=== PATIENT | male | born 1995 | race Caucasian/White ===

== ENCOUNTER 2018-07-25 18:46 | Emergency (ER) | payer OTHER ==
[~2018-07-25 18:46] MED LIST: ACE3 PO; ALB0.5 INH; DEXT10SY2 PO; ERYT-80 PO; HYDR-653 PO; IBUP-1618 PO; MULT-1372 PO; PRE20 PO
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
[2018-07-25 20:22] LABS: PLATELET COUNT, AUTOMATED 199 K/uL (150-450)
[2018-07-25 21:22] VITALS: BP 122/90
== END 2018-07-25 21:20 ==
LOC: EDUNIT# 18:46 → ER 19:00
DX: R45.851 Suicidal ideations (principal)
CPT/HCPCS: 80305; 80320; 80329; 81001; 82040; 82247; 82310; 82374; 82435; 82565; 82947; 83735; 84075; 84132; 84155; 84295; 84443; 84450; 84460; 84520; 85025; 99284

== ENCOUNTER 2018-07-25 20:46 | Inpatient (IN) | payer OTHER ==
[2018-07-25] MEDS ORDERED: NICOTINE INH SYSTEM 10 MG/INH INH PRN (21:50)
[2018-07-25] MEDS ORDERED: NICOTINE CARTRIDGE 1 EA PO PRN (21:50)
[2018-07-25] MEDS ORDERED: MAG HYD/AL HYD/SIMETH 30ML UDC PO PRN (21:50)
[2018-07-25] MEDS: ACETAMINOPHEN 325 MG TAB PO PRN (22:31)
[2018-07-25 23:17] VITALS: BP 128/92
[2018-07-26] MEDS: MULTIVITAMINS TAB PO SCH (08:12)
[2018-07-26] MEDS ORDERED: INFLUENZA VIRUS VAC 0.5ML SYR IM ONLY ONE (11:10)
[2018-07-26] MEDS: SERTRALINE HCL 50 MG TAB PO SCH (11:41)
[2018-07-26] MEDS: ACETAMINOPHEN 325 MG TAB PO PRN (20:10)
[2018-07-26 20:49] VITALS: BP 104/72
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
[2018-07-27 06:00] VITALS: BP 125/72
[2018-07-27 06:36] LABS: PLATELET COUNT, AUTOMATED 163 K/uL (150-450)
[2018-07-27] MEDS: MULTIVITAMINS TAB PO SCH (07:52)
[2018-07-27] MEDS: SERTRALINE HCL 50 MG TAB PO SCH (07:52)
[2018-07-27] MEDS ORDERED: NIC10R INH ×2 (10:28→12:55)
[2018-07-27] MEDS ORDERED: SERT-1 PO (10:28)
--- NOTE | 2018-07-27 15:32 | [facility] Discharge Summary ---
[facility] Discharge Summary Gbjo-tq-Aorf Encounter Date: Jul 27, 2018 Jxra-lr-Veiv Encounter Time: 10:00 Reason-Hosp/Final Diag (DSM-V): (1) Adjustment disorder with mixed anxiety and depressed mood Status: Resolved Hospital Course & Plan: Pt was admitted to [facility] and maintained on suicide precautions. He was cooperative, pleasant, and very engaged in his treatment. He expressed a lot of remorse and regret about his actions the day of admission. He said he knew he needed help for depression and had actually met with his boss that morning to figure out the best time for him to miss work to attend therapy. He agreed to treatment with an antidepressant (zoloft 25mg) and this was well tolerated. He denied suicidal ideation throughout his hospital stay. His guns were secured by his friend in a gun safe, and his mother verified this. We held a treatment team meeting with his mother on speaker phone, and she was very supportive. He spoke with his on the phone, and she informed him that for the time being she is NOT comfortable with him being with their daughter a lone-- he said he understood this. They both agreed that they need couples therapy. He called and set up his outpatient treatment [facility], where he will follow up both for therapy and medication management. He was advised that his overnight pulseox indicated possible sleep apnea, and he was told to follow up with primary care provider. He also had elevated t. Bili of 2.2, and he will follow up with primary care for this as well. (2) Partner relational problem Status: Chronic Physical Exam Latest Vital Signs Vital Signs 07/27/18 06:00 Temp 97.3 Pulse 75 Resp 15 B/P (MAP) 125/72 (89) Pulse Ox 91 O2 Delivery Room Air Mental Status Exam General Appearance: Casual, Well Groomed, Good Eye Contact, Cooperative, Po lite, Good Interaction Speech: Clear, Spontaneous, Normal Rate, Normal Rhythm, Normal Volume, Normal Tone Mood: Euthymic Affect: Full and Appropriate Thought Process: Organized, Logical, Goal Directed Thought Content: No Suicidal Ideation, No Homicidal Ideation, No Delusions, No Auditory Halllucinations, No Visual Hallucinations, No Thought Broadcasting, No Ideas of Reference, No Obsessions, No Compulsions, No Other Sensorium: Clear Cognition: Alert & Oriented-Person, Alert & Oriented-Place, Alert & Oriented- Time Memory: Immediate, Recent, Remote Intelligence: Average Insight Judgment: Good Departure Result Diagram: 07/27/1861307/27/18613 Condition: Improved Discharge to: Home Discharge Instructions Home Meds Reported Medications Nicotine (NICOTROL) 10 Mg/Inh Ctr, 10 MG INH PRN PRN for NICOTINE REPLACEMENT 07/27/18 Sertraline Hcl (ZOLOFT) 50 Mg Tablet, 1 TAB PO QDAY, TAB 07/27/18 Discontinued Reported Medications Nicotine (NICOTROL) 10 Mg/Inh Ctr, 10 MG INH PRN PRN for NICOTINE REPLACEMENT 07/27/18 Multivitamin (DAILY VALUE) 1 Each Tablet, 1 EACH PO DAILY 08/04/15 Multpiple Antipsychotics Used: No Diet: Regular Activity: As Tolerated Special Instructions: Discharge today. Follow-up with Primary Care Provider for possible sleep apnea and for elevated liver enzymes. Follow-up with outpatient therapy and medication management. Crisis line provided or return to Emergency Room for return of symptoms. JANEL RILEY MD Jul 27, 2018 15:32
== END 2018-07-27 14:21 | disposition home or self-care (01) | DRG 882 ==
LOC: BHS 20:46
PROVIDERS: ADMIT Nurse Practitioner Psychiatric/Mental Health; ATTEND Nurse Practitioner Psychiatric/Mental Health
DX: F43.23 Adjustment disorder with mixed anxiety and depressed mood (principal); R45.851 Suicidal ideations; G89.29 Other chronic pain; Z63.5 Disruption of family by separation and divorce; Z73.3 Stress, not elsewhere classified; Z59.6 Low income; Z81.8 Family history of other mental and behavioral disorders; Z23 Encounter for immunization
CPT/HCPCS: 36415; 82040; 82247; 82310; 82374; 82435; 82565; 82947; 84075; 84132; 84155; 84295; 84450; 84460; 84520; 85025; 90674